=== PATIENT | female | born 1970 | race Two or more races ===

== ENCOUNTER 2023-06-01 01:53 | Emergency (ER) | payer MEDICAID ==
[~2023-06-01] VITALS: Ht 154.9 cm; Wt 71.7 kg
[2023-06-01 02:06] VITALS: BP 125/81; TEMP 98.1; O2SAT 98
== END 2023-06-01 02:49 | disposition home or self-care (01) ==
LOC: ER 02:01
DX: M54.2 Cervicalgia (principal); M54.50 Low back pain, unspecified; V89.2XXA Person injured in unspecified motor-vehicle accident, traffic, initial encounter; Y93.89 Activity, other specified; Y92.89 Other specified places as the place of occurrence of the external cause; Y99.8 Other external cause status; Z88.0 Allergy status to penicillin